=== PATIENT | male | born 1965 | race Caucasian/White ===

== ENCOUNTER 2016-09-17 18:33 | Emergency (ER) | payer OTHER | END 2016-09-18 03:45 | disposition home or self-care (01) | LOC: ER1 18:33 | DX: M51.16 Intervertebral disc disorders with radiculopathy, lumbar region (principal); I10 Essential (primary) hypertension; F17.200 Nicotine dependence, unspecified, uncomplicated; M41.80 Other forms of scoliosis, site unspecified; M48.06 Spinal stenosis, lumbar region; Z88.0 Allergy status to penicillin; Z79.899 Other long term (current) drug therapy | CPT/HCPCS: 72131; 76870; 81001; 96372; 99284; J2270; J2405 ==

== ENCOUNTER 2016-10-09 16:06 | Emergency (ER) | payer OTHER ==
[2016-10-09 18:59] LABS: RED BLOOD COUNT 6.1 M/UL (4.20-5.50); WHITE BLOOD COUNT 9.1 K/UL (4.5-11.0)
[2016-10-09 19:34] LABS: BUN/CREATININE RATIO 24 (0-10)
== END 2016-10-09 22:48 | disposition home or self-care (01) ==
LOC: ER1 16:06
PROVIDERS: Physician Assistant
DX: R10.31 Right lower quadrant pain (principal); M48.06 Spinal stenosis, lumbar region; E66.9 Obesity, unspecified; I10 Essential (primary) hypertension; Z88.0 Allergy status to penicillin; Z79.899 Other long term (current) drug therapy
CPT/HCPCS: 71010; 80053; 81001; 82550; 82553; 83690; 83874; 84484; 85025; 86140; 87086; 93005; 96374; 99284; J2270; J7050; Q9962

== ENCOUNTER → 2016-10-09 | Outpatient (CLI) | payer OTHER | LOC: MRI 14:30 | DX: M54.16 Radiculopathy, lumbar region (principal) ==

== ENCOUNTER → 2021-11-08 | Outpatient (CLI) | payer MEDICARE ==
[~2021-11-08] MED LIST: AMLODIPINE BESY10 MG PO; ANTIVERT 12.512.5 MG PO; ASPIRIN EC81 MG PO; BUMETANIDE1 MG PO; CYCLOBENZAPRINE10 MG PO; GABAPENTIN600 MG PO; HYDROCODON-ACE1 EACH PO; IBUPROFEN IB200 MG PO; LEXAPRO TAB 1010 MG PO; LISINOPRIL-HCT1 EAC2 PO; METOPROLOL SUCC50 MG PO; SEROQUEL50 MG PO; VALIUM5 MG PO; VENLAFAXINE HC150 M1 PO; VISTARIL50 MG PO; ZITHROMAX250 MG PO; ZYRTEC10 MG PO
== END ==
LOC: KOH-I 09:07
DX: M51.16 Intervertebral disc disorders with radiculopathy, lumbar region (principal); M41.9 Scoliosis, unspecified
CPT/HCPCS: 72110